=== PATIENT | female | born 2000 | race Caucasian/White ===

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

== ENCOUNTER 2022-12-23 19:34 | Emergency (ER) | payer SELFPAY ==
[2022-12-23 19:35] VITALS: BP 135/78; PULSE 86; RESP 18; TEMP 37.1; O2SAT 96; BMI 31.3
--- NOTE | 2022-12-23 19:55 | EXP.UTC ---
Discharge Plan Disposition Patient Disposition: Home, Self-Care Condition: Good Prescriptions Prescriptions: New ibuprofen [ibuprofen] 600 mg tablet 600 mg PO Q6HP PRN (Reason: Mild Pain) Qty: 30 0RF ibkqmwqzvambyhq-fhdjgdkgt-TN [Bromfed DM] 2-30-10 mg/5 mL Syrup 5 ml PO Q6H PRN (Reason: Cough) Qty: 240 0RF No Action fluticasone propionate 120 SPR/BOT bottle 1 spr NS DAILY Qty: 1 0RF Rx Instructions: one spray in each nostril daily Referrals Follow up/Referrals: William Bright MD [Primary Care Provider] - See instructions Activity Restrictions/Add. Instructions Additional Instructions/Restrictions: Drink plenty of fluids. Take tylenol or ibuprofen for pain or fever. Follow up with your regular doctor. GO TO THE ER FOR ANY WORSENING SYMPTOMS Clinical Impressions Clinical Impression: Viral pharyngitis, Acute viral syndrome Instructions Patient Instructions: DI for Viral Pharyngitis Discharge ED Provider: John Isaacs [facility] General Stated complaint: sore/swollen throat, difficulty swallowing Mode of Arrival: Ambulatory Source of Information: Patient Limitations: No Limitations Time Seen by Provider: 12/23/22 19:55 Description of Symptoms (Recalled from Triage Doc. by RN): sore throat, runny nose HEENT Symptoms (Recalled from RN notes): Yes Resp Symptoms (Recalled from RN notes): No Skin Symptoms (Recalled from RN notes): No MS Symptoms (Recalled from RN notes): No Functional Status (Recalled from RN notes): n/a History of Present Illness Provider Complaint: She states that she has felt bad and had a sore throat for the past 1 day. Related Data Previous Rx's Medication Instructions Recorded fluticasone propionate 50 1 spr NS DAILY #1 ea 08/03/21 mcg/actuation nasal spray,suspension pzeogpwihklyqkh-lcbewpyfoexpewp-LE 5 ml PO Q6H PRN Cough #240 mL 12/23/22 2 mg-30 mg-10 mg/5 mL oral syrup (Bromfed DM) ibuprofen 600 mg tablet 600 mg PO Q6HP PRN Mild Pain #30 12/23/22 tabs Allergies Allergy/AdvReac Type Severity Reaction Status Date / Time BEE VENOM PROTEIN (HONEY BEE) Allergy Unknown Uncoded 12/23/22 19:52 Worker's Comp Is this a Worker's Comp case?: No [facility] Disclaimer: The information contained in this section may have been updated after the patient was seen, as this information can be updated by other users. Social History Smoking Status: Never smoker alcohol intake: never current occupational status: employed Travel in the last 8 weeks: None ROS Obtained: Yes All systems reviewed & no additional complaints except as documented Constitutional Constitutional: Reports chills, Reports fatigue and Denies fever(s) Eyes Eyes: Denies eye discharge ENT Ears, Nose, Mouth, and Throat: Reports as per HPI Cardiovascular Cardiovascular: Denies chest pain Respiratory Respiratory: Denies chest congestion and Reports cough Gastrointestinal Gastrointestingal: Reports nausea; Denies abdominal pain, constipation, cramping, diarrhea or vomiting Musculoskeletal Musculoskeletal: Denies arthralgias Integumentary/Breasts Skin/Breast: Denies rash Neurologic Neurologic: Denies paresthesias Endocrine Endocrine: Reports fatigue Physical Exam General General appearance: alert and in no apparent distress Head Head exam: atraumatic, normocephalic and normal inspection Eye Eye exam: Present normal appearance, PERRL and EOMI ENT ENT exam: Present normal exam, normal oropharynx, mucous membranes moist, TM's normal bilaterally and normal external ear exam Neck Neck exam: Present normal inspection, full ROM and trachea midline; Absent meningismus or lymphadenopathy Chest Chest inspection: Present normal inspection and symmetric chest wall rise; Absent tenderness Respiratory Respiratory exam: Present normal lung sounds bilaterally; Absent respiratory distress Cardiovascular Cardiovascular exam: Present regular rate and normal rhythm; Absent JVD
[2022-12-23 20:00] LABS: UTC Strep Screen (Rapid) Negative (Negative)
[2022-12-23 20:11] VITALS: BP 135/78; PULSE 86; RESP 18; TEMP 37.1; O2SAT 96
== END 2022-12-23 20:11 | disposition home or self-care (01) ==
PROVIDERS: Emergency Provider Nurse Practitioner Family; PCP Internal Medicine Adolescent Medicine
DX: J02.9 Acute pharyngitis, unspecified (principal); B34.9 Viral infection, unspecified
CPT/HCPCS: 87880; 99212; 99214; G0463

== ENCOUNTER 2023-07-09 18:55 | Emergency (ER) | payer BC, SELFPAY ==
[2023-07-09 20:01] VITALS: BP 125/71; PULSE 87; RESP 18; TEMP 36.7; O2SAT 99; BMI 31.1
[2023-07-09 20:19] LABS: Apearance,Urine Cloudy (Clear); Color,Urine Dark Yellow (Yellow); Protein,Urine 1+ (Negative)
[2023-07-09 20:20] LABS: Bilirubin,Urine Negative (Negative); Blood, Urine 3+ (Negative); Glucose,Urine (UA) Negative (Negative); Ketones,Urine Negative (Negative); UTC Leukocyte Esterase,Urine 2+ (Negative); UTC Nitrate,Urine Negative (Negative); UTC Pregnancy Test, Urine Negative (Negative); Urobilinogen,Urine 1 EU/dl (0.2)
--- NOTE | 2023-07-09 20:24 | EXP.UTC ---
Discharge Plan Disposition Patient Disposition: Home, Self-Care Condition: Good Prescriptions Prescriptions: New cefdinir 300 mg capsule 300 mg PO BID Qty: 20 0RF phenazopyridine [Pyridium] 200 mg tablet 200 mg PO Q8H 2 Days Qty: 6 0RF No Action fluticasone propionate 120 SPR/BOT bottle 1 spr NS DAILY Qty: 1 0RF Rx Instructions: one spray in each nostril daily Referrals Follow up/Referrals: William Bright MD [Primary Care Provider] - See instructions Activity Restrictions/Add. Instructions Additional Instructions/Restrictions: *Increase fluids. Water not Soda or Tea *Start antibiotic immediately and be sure to take as ordered for the FULL length of time although you should start to see improvement over the next 48 hours *Pyridium as needed Remember this medication will turn your urine . This is normal but it will stain what ever it gets on *You should not use Pyridium for more than 48 hours. If so , follow up with your primary physician to review urine culture and ensure that antibiotic is adequate for infection *Be SURE to follow up anytime for new or worsening symptoms with your family doctor. AND in 48 hours for urine culture results with your family doctor, if you do not have a doctor then you may call back to the [facility] for urine culture results and further treatment. We do recommend that you choose and establish care with a Primary Care Physician. ?AND follow up with them ?in 10-14 days to repeat UA to ensure infection is resolved and blood no longer present *Be sure to let your PCP know that we sent urine cultures from the [facility] so they can follow up to ensure that you area the on the correct antibiotic Call your doctor office and make appointment for 48 hours (2 days from today) ?to follow up and get the results of your urine culture and further treatment Clinical Impressions Clinical Impression: UTI (urinary tract infection) Qualifiers: Urinary tract infection type: site unspecified Hematuria presence: with hematuria Qualified Code(s): N39.0 - Urinary tract infection, site not specified Instructions Patient Instructions: Urinary Tract Infection, DI for Urinary Tract Infection (UTI) Discharge ED Provider: Alyssa Ley [facility] [place] HPI General Stated complaint: painful urination Mode of Arrival: Ambulatory Source of Information: Patient Limitations: No Limitations Time Seen by Provider: 07/09/23 20:24 Description of Symptoms (Recalled from Triage Doc. by RN): Pt is having burning with urination. HEENT Symptoms (Recalled from RN notes): Yes Resp Symptoms (Recalled from RN notes): No Skin Symptoms (Recalled from RN notes): No MS Symptoms (Recalled from RN notes): No Functional Status (Recalled from RN notes): n/a History of Present Illness Provider Complaint: Patient states that for the last few days she has been having discomfort with urination and feeling of urgency and frequency States that she took some OTC Cranberry pills but they havent helped much States today she was still having symptoms and they discomfort seemed to be getting worse and she was worried she may have a UTI so she came in Denies fever, denies abdominal pain, denies back pain Related Data Previous Rx's Medication Instructions Recorded fluticasone propionate 50 1 spr NS DAILY #1 ea 08/03/21 mcg/actuation nasal spray,suspension cefdinir 300 mg capsule 300 mg PO BID #20 caps 07/09/23 phenazopyridine 200 mg tablet 200 mg PO Q8H pain 2 days #6 tabs 07/09/23 (Pyridium) Allergies Allergy/AdvReac Type Severity Reaction Status Date / Time BEE VENOM PROTEIN (HONEY BEE) Allergy Unknown Uncoded 07/09/23 20:24 Worker's Comp Is this a Worker's Comp case?: No [facility] Disclaimer: The information contained in this section may have been updated after the patient was seen, as this information can be updated by other users. Social History Smoking Status: Never smoker alcohol intake: never current occupational status: employed Travel in the last 8 weeks: None ROS Obtained: Yes All systems reviewed & no additional complaints except as documented and Yes Systems reviewed as appropriate & no additional complaints except as documented Constitutional Constitutional: Reports system reviewed and no additional complaints, except as documented, Reports as per HPI, Denies body ache, Denies chills and Denies fever(s) ENT Ears, Nose, Mouth, and Throat: Reports system reviewed and no additional complaints, except as documented and Reports as per HPI Cardiovascular Cardiovascular: Reports system reviewed and no additional complaints, except as documented and Reports as per HPI Respiratory Respiratory: Reports system reviewed and no additional complaints, except as documented and Reports as per HPI Gastrointestinal Gastrointestingal: Reports system reviewed and no additional complaints, except as documented and as per HPI; Denies abdominal pain, nausea or vomiting Genitourinary Female Genitourinary: Reports system reviewed and no additional complaints, except as documented, Reports as per HPI, Reports dysuria, Reports urinary frequency and Reports urinary urgency Musculoskeletal Musculoskeletal: Reports system reviewed and no additional complaints, except as documented and Reports as per HPI Physical Exam General General appearance: alert and in no apparent distress ENT ENT exam: Present mucous membranes moist Respiratory Respiratory exam: Present normal lung sounds bilaterally; Absent respiratory distress or wheezes Cardiovascular Cardiovascular exam: Present regular rate, normal rhythm and normal heart sounds Abdominal Exam Abdominal exam: Present soft and normal bowel sounds; Absent distention or tenderness Neurological Exam Neurological exam: Present alert, oriented X3 and normal gait Medical Decision Making Will Inquiry Pt receiving controlled substance: No Will was queried for this patient: No Vital Signs: 07/09/23 20:01 Temperature 98.0 F Temperature Source Oral Pulse Rate [Right Radial] 87 Respiratory Rate 18 Blood Pressure [Right Arm] 125/71 Blood Pressure Mean [Right Arm] 89 Blood Pressure Source [Right Arm] Automatic Cuff Blood Pressure Position [Right Arm] Sitting 02 Sat by Pulse Oximetry 99 Oxygen Delivery Method Room Air Lab Data Lab results reviewed: Yes I reviewed the patient's lab results. Lab Results 07/09/23 19:54: Urine Color Dark yellow, Urine Appearance Cloudy, Urine pH 7.0, Ur Specific [place] 1.020, Urine Protein 1+, Urine Glucose (UA) Negative, Urine Ketones Negative, Urine Blood 3+, Urine Nitrate Negative, Urine Bilirubin Negative, Urine Urobilinogen 1, Ur Leukocyte Esterase 2+ A, Tst Clinic Negative
[2023-07-09] MEDS: cefTRIAXone 1GM VIAL 1 GM IM (20:29)
[2023-07-09] MEDS: LIDOCAINE 1% 5ML PF VIAL IM (20:30)
[2023-07-09] MEDS: PHENAZOPYRIDINE 200MG TABLET 200 MG PO (20:30)
[2023-07-09 20:54] VITALS: BP 125/71; PULSE 87; RESP 18; TEMP 36.7; O2SAT 99
== END 2023-07-09 20:54 | disposition home or self-care (01) ==
PROVIDERS: Emergency Provider Nurse Practitioner; PCP Internal Medicine Adolescent Medicine
DX: N39.0 Urinary tract infection, site not specified (principal); R31.9 Hematuria, unspecified; R30.0 Dysuria
CPT/HCPCS: 81003; 81025; 87086; 96372; 99212; 99214; G0463; J0696

== ENCOUNTER 2023-12-03 21:10 | Emergency (ER) | payer BC, SELFPAY ==
[2023-12-03 21:10] VITALS: BP 139/86; PULSE 93; RESP 18; TEMP 36.8; O2SAT 100; BMI 28.3
[2023-12-03] MEDS: IOPAMIDOL-370 (76%);100ML BOTTLE 75 ML IV (21:25)
[2023-12-03] MEDS: SODIUM CHLORIDE 0.9% 10ML SYR (RAD ONLY) 10 ML IV (21:25)
--- NOTE | 2023-12-03 21:25 | CT_ITS ---
PROCEDURE INFORMATION: Exam: CT Abdomen And Pelvis With Contrast Exam date and time: 12/03/2023 11:00 PM Age: 23 years old Clinical indication: Abdominal pain; Additional info: Llq pain TECHNIQUE: Imaging protocol: Computed tomography of the abdomen and pelvis with contrast. Radiation optimization: All CT scans at this facility use at least one of these dose optimization techniques: automated exposure control; mA and/or kV adjustment per patient size (includes targeted exams where dose is matched to clinical indication); or iterative reconstruction. Contrast material: ISOVUE; Contrast volume: 75 ml; Contrast route: IV; COMPARISON: No relevant prior studies available. FINDINGS: Lungs: No acute finding. Liver: Normal. No mass. Gallbladder and biliary ducts: Normal. No calcified stones. No ductal dilation. Pancreas: Normal. No ductal dilation. Spleen: Normal. No splenomegaly. Adrenal glands: Normal. No mass. Kidneys and ureters: Normal. No hydronephrosis. Stomach and bowel: Unremarkable. No obstruction. No mucosal thickening. Appendix: No evidence of appendicitis. Intraperitoneal space: Unremarkable. No free air. No significant fluid collection. Vasculature: Unremarkable. No abdominal aortic aneurysm. Lymph nodes: Unremarkable. No enlarged lymph nodes. Urinary bladder: Unremarkable as visualized. Reproductive: Unremarkable as visualized. Bones/joints: Unremarkable. No acute fracture. Soft tissues: Unremarkable. IMPRESSION: No acute findings.
[2023-12-03] MEDS: KETOROLAC 30MG/ML VIAL 15 MG IV (21:33)
[2023-12-03] MEDS: ACETAMINOPHEN 1,000MG/100ML VIAL 1000 MG IV (21:33)
[2023-12-03] MEDS: LACTATED RINGERS 1000ML 1,000 ML 999 ML IV (21:33)
[2023-12-03] MEDS: ONDANSETRON 4MG/2ML VIAL 4 MG IV (21:33)
[2023-12-03 21:34] LABS: Basophils % 0.3 % (0.1-2.0); Eosinophils # 0.1 K/mm3 (0.0-0.4); Eosinophils % 0.7 % (0.1-12.0); Lymphocytes # 1.3 K/mm3 (0.7-4.5); Lymphocytes % 13.1 % (10-50); Mean Corpuscular HGB Conc 31.5 g/dL (31.8-35.4); Mean Corpuscular Hemoglobin 28.1 pg (27.0-31.2); Mean Corpuscular Volume 89.4 fl (81-99); Mean Platelet Volume 7.6 fl (7.4-10.4); Monocytes # 0.3 K/mm3 (0.1-1.0); Monocytes % 3.4 % (1.7-9.3); Neutrophils # 8.2 K/mm3 (1.8-7.8); Neutrophils % 82.4 % (37.0-80.0); Platelet Count 302 K/mm3 (142-424); Red Blood Count 4.25 M/mm3 (4.20-5.40); Red Cell Distribution Width 14.5 % (11.5-17.5)
--- NOTE | 2023-12-03 21:44 | ED_ITS ---
Discharge Plan Disposition Patient Disposition: Home, Self-Care Condition: Fair Prescriptions Prescriptions: No Action fluticasone propionate 120 SPR/BOT bottle 1 spr NS DAILY Qty: 1 0RF Rx Instructions: one spray in each nostril daily cefdinir 300 mg capsule 300 mg PO BID Qty: 20 0RF phenazopyridine [Pyridium] 200 mg tablet 200 mg PO Q8H 2 Days Qty: 6 0RF Referrals Follow up/Referrals: William Bright MD [Primary Care Provider] - See instructions Clinical Impressions Clinical Impression: Abdominal pain, acute, bilateral lower quadrant Instructions Patient Instructions: DI for Acute Abdominal Pain Print Language Print Language: Occitan Discharge ED Provider: Shantelle Claros General Adult HPI <Shantelle Claros DO - Last Filed: 12/04/23 12:02> General Chief complaint: Abdominal Pain Stated complaint: Abd Pain Time Seen by Provider: 12/03/23 21:15 Mode of Arrival: EMS Source of Information: Patient and EMS Limitations: No Limitations Description of Symptoms (Recalled from ER Triage Doc. by RN): Pt presents to ED via EMS for L sided abd pain and weakness. Pt states she was at work ([employer]) and started feeling weak and the pain started. Pt states she's not had this pain before. Pt is A&O*4 at this time. History of Present Illness HPI narrative: This patient is a 23-year-old female arriving by [facility] with concern for left lower quadrant abdominal pain. Patient states that she was working on [employer] and almost passed out because the pain became so severe. She denies experiencing these like this in the past. She states it did come on very suddenly. No fevers, chills, nausea, vomiting, changes bowel movements, urinary symptoms, abnormal vaginal discharge or bleeding, or other concerns. She is sexually active but denies any concern she could be , as her last period was approximate 1 week ago. She denies any concern for sexually transmitted infections. Related Data Previous Rx's ?Medication ?Instructions ?Recorded fluticasone propionate 50 1 spr NS DAILY #1 ea 08/03/21 mcg/actuation nasal spray,suspension cefdinir 300 mg capsule 300 mg PO BID #20 caps 07/09/23 phenazopyridine 200 mg tablet 200 mg PO Q8H pain 2 days #6 tabs 07/09/23 (Pyridium) Allergies Allergy/AdvReac Type Severity Reaction Status Date / Time bee venom protein (honey bee) Allergy Unknown Verified 08/02/23 10:37 allergy reaction PFSH <Shantelle Claros DO - Last Filed: 12/04/23 12:02> [facility] Disclaimer: The information contained in this section may have been updated after the patient was seen, as this information can be updated by other users. Social History Smoking Status: Current every day smoker alcohol intake: never current occupational status: employed Travel in the last 8 weeks: None <Shantelle Claros DO - Last Filed: 12/04/23 12:02> ROS Obtained: Yes All systems reviewed & no additional complaints except as documented Physical Exam <Shantelle Claros DO - Last Filed: 12/04/23 12:02> General General appearance: alert and in no apparent distress Head Head exam: atraumatic and normocephalic Eye Eye exam: Present normal appearance, PERRL and EOMI ENT ENT exam: Present normal exam, normal oropharynx, mucous membranes moist and normal external ear exam Neck Neck exam: Present normal inspection, full ROM and trachea midline; Absent tenderness Chest Chest inspection: Present normal inspection and symmetric chest wall rise; Absent tenderness Respiratory Respiratory exam: Present normal lung sounds bilaterally; Absent respiratory distress, wheezes, stridor or accessory muscle use Cardiovascular Cardiovascular exam: Present regular rate and normal rhythm Abdominal Exam Abdominal exam: Present soft and tenderness (LLQ); Absent distention, guarding, rebound or rigidity Extremities Exam Extremities exam: Present normal inspection, full ROM and normal capillary refill; Absent tenderness or edema Back Exam Back exam: Present normal inspection and full ROM; Absent tenderness Neurological Exam Neurological exam: Present alert, oriented X3, CN II-XII intact and normal gait; Absent motor sensory deficit Psychiatric Psychiatric exam: Present normal affect and normal mood Skin Skin exam: Present warm and dry Medical Decision Making <Shantelle Claros DO - Last Filed: 12/04/23 12:02> Medical Records Medical records reviewed: Yes I reviewed the patient's medical records. Will Inquiry Pt receiving controlled substance: No Vital Signs: 12/03/23 21:10 12/03/23 22:30 12/03/23 23:00 Temperature 98.3 F 98.3 F 97.9 F Temperature Source Oral Pulse Rate 70 84 Pulse Rate [Left] 93 H Respiratory Rate 18 16 18 Blood Pressure 115/60 119/70 Blood Pressure [Right Arm] 139/86 Blood Pressure Mean [Right Arm] 103 02 Sat by Pulse Oximetry 100 99 99 Oxygen Delivery Method Room Air 12/03/23 23:30 12/04/23 00:00 12/04/23 00:30 Temperature 98.4 F 98.4 F 98.2 F Temperature Source Oral Pulse Rate 60 58 L 88 Pulse Rate [Left] Respiratory Rate 16 16 18 Blood Pressure 100/52 L 100/55 L 123/74 Blood Pressure [Right Arm] Blood Pressure Mean [Right Arm] 02 Sat by Pulse Oximetry 100 99 Oxygen Delivery Method Room Air 12/04/23 00:30 Temperature 98.2 F Temperature Source Pulse Rate 88 Pulse Rate [Left] Respiratory Rate 16 Blood Pressure 123/74 Blood Pressure [Right Arm] Blood Pressure Mean [Right Arm] 02 Sat by Pulse Oximetry 99 Oxygen Delivery Method Lab Data Lab results reviewed: Yes I reviewed the patient's lab results. Lab Results 12/03/23 21:17: WBC 10.0, RBC 4.25, Hgb 12.0 L, Hct 38.0, MCV 89.4, MCH 28.1, M CHC 31.5 L, RDW 14.5, Plt Count 302, MPV 7.6, Neut % (Auto) 82.4 H, Lymph % (Auto) 13.1, [place] % (Auto) 3.4, Eos % (Auto) 0.7, Baso % (Auto) 0.3, Neut # (Auto) 8.2 H, Lymph # (Auto) 1.3, [place] # (Auto) 0.3, Eos # (Auto) 0.1, Baso # (Auto) 0.0, Sodium 139, Potassium 3.7, Chloride 107, Carbon Dioxide 23, Anion Gap 12.7, BUN 7, Creatinine 0.70, Estimated Creat Clear 146, Estimated GFR 106, Est GFR ( Amer) 128, Glucose 88, Calcium 9.3, Total Bilirubin 0.5, AST 26, ALT 17, Alkaline Phosphatase 77, Total Protein 7.8, Albumin 4.2, Globulin 3.6 H, Albumin/Globulin Ratio 1.2, Lipase 26, Serum HCG, Qual Negative 12/03/23 23:00: Urine Color Yellow, Urine Appearance Clear, Urine pH 6.0, Ur Specific [place] <= 1.005, Urine Protein Negative, Urine Glucose (UA) Negative, Urine Ketones 1+, Urine Blood Negative, Urine Nitrate Negative, Urine Bilirubin Negative, Urine Urobilinogen 0.2, Ur Leukocyte Esterase Negative, Urine WBC Occasional, Ur Squamous Epith Cells 3-5, Urine Bacteria Trace 12/03/23 21:17 12/03/23 21:17 Orders (Tests/Meds): ED MEDICATIONS Discontinued Medications Generic Name Dose Route Start Last Admin Trade Name Freq PRN Reason Stop Dose Admin Acetaminophen 1,000 mg 12/03/23 21:25 12/03/23 21:33 Acetaminophen 1,000mg/100ml Vial IV 12/03/23 21:26 1,000 mg ONCE ONE Administration Lactated Ringer's 1,000 mls @ 999 mls/hr 12/03/23 21:25 12/03/23 21:33 Lactated Ringer's 1000 Ml Bag IV 12/03/23 22:25 999 mls/hr .Q1H1M ONE Administration Iopamidol 75 ml 12/03/23 21:25 12/03/23 21:25 Iopamidol-370 (76%);100ml Bottle IV 12/03/23 21:26 75 ml ONCE ONE Administration Ketorolac Tromethamine 15 mg 12/03/23 21:25 12/03/23 21:33 Ketorolac 30mg/Ml Vial IV 12/03/23 21:26 15 mg ONCE ONE Administration Ondansetron HCl 4 mg 12/03/23 21:25 12/03/23 21:33 Ondansetron 4mg/2ml Vial IV 12/03/23 21:26 4 mg ONCE ONE Administration Sodium Chloride 10 ml 12/03/23 21:25 12/03/23 21:25 Sodium Chloride 0.9% 10ml Syr (Rad Only) IV 12/03/23 21:26 10 ml ONCE ONE Administration ORDERS Category Date Time Status CT abdomen pelvis w con Stat Cat Scan 12/03/23 21:25 Completed CBC w/Auto Diff [Complete Blood Count Auto Diff] Stat Lab 12/03/23 21:17 Completed CMP [Comprehensive Metabolic Panel] Stat Lab 12/03/23 21:17 Completed Lipase Stat Lab 12/03/23 21:17 Completed Serum [HCG Qualitative, Serum] Stat Lab 12/03/23 21:17 Completed UA [Urinalysis and Microscopic] Stat Lab 12/03/23 23:00 Completed Medical Decision Narrative: In summary, this patient is a 23-year-old female presenting to the Emergency Department for evaluation of left lower quadrant abdominal pain that started suddenly at work and nearly made her pass out. Differential diagnoses considered include but are not limited to ovarian cyst, ovarian torsion, colitis, , ectopic , cystitis, pyelonephritis, constipation. Ruling out the most morbid conditions drove assessment. On exam, the patient is lying in bed in no acute distress. She does have left lower quadrant tenderness on exam but otherwise abdominal exam is benign workup included CBC, CMP, lipase, urinalysis, test, urine gonorrhea, urine chlamydia, CT abdomen pelvis with IV contrast. She was given a bolus of IV fluids as well as IV Toradol, acetaminophen, and Zofran for symptomatic treatment. On reassessment, the patient is resting comfortably with significantly improved symptoms. She is feeling a lot better. Labs demonstrated reassuring CMP with no significant transaminitis, normal lipase. Kidney function normal. Patient care was signed out to the oncoming provider, Dr. Ruth, pending UA, test, and CT. <Manny Ruth MD - Last Filed: 12/04/23 23:31> Vital Signs: 12/03/23 21:10 12/03/23 22:30 12/03/23 23:00 Temperature 98.3 F 98.3 F 97.9 F Temperature Source Oral Pulse Rate 70 84 Pulse Rate [Left] 93 H Respiratory Rate 18 16 18 Blood Pressure 115/60 119/70 Blood Pressure [Right Arm] 139/86 Blood Pressure Mean [Right Arm] 103 02 Sat by Pulse Oximetry 100 99 99 Oxygen Delivery Method Room Air 12/03/23 23:30 12/04/23 00:00 12/04/23 00:30 Temperature 98.4 F 98.4 F 98.2 F Temperature Source Oral Pulse Rate 60 58 L 88 Pulse Rate [Left] Respiratory Rate 16 16 18 Blood Pressure 100/52 L 100/55 L 123/74 Blood Pressure [Right Arm] Blood Pressure Mean [Right Arm] 02 Sat by Pulse Oximetry 100 99 Oxygen Delivery Method Room Air 12/04/23 00:30 Temperature 98.2 F Temperature Source Pulse Rate 88 Pulse Rate [Left] Respiratory Rate 16 Blood Pressure 123/74 Blood Pressure [Right Arm] Blood Pressure Mean [Right Arm] 02 Sat by Pulse Oximetry 99 Oxygen Delivery Method Lab Data Lab Results 12/03/23 21:17: WBC 10.0, RBC 4.25, Hgb 12.0 L, Hct 38.0, MCV 89.4, MCH 28.1, M CHC 31.5 L, RDW 14.5, Plt Count 302, MPV 7.6, Neut % (Auto) 82.4 H, Lymph % (Auto) 13.1, [place] % (Auto) 3.4, Eos % (Auto) 0.7, Baso % (Auto) 0.3, Neut # (Auto) 8.2 H, Lymph # (Auto) 1.3, [place] # (Auto) 0.3, Eos # (Auto) 0.1, Baso # (Auto) 0.0, Sodium 139, Potassium 3.7, Chloride 107, Carbon Dioxide 23, Anion Gap 12.7, BUN 7, Creatinine 0.70, Estimated Creat Clear 146, Estimated GFR 106, Est GFR ( Amer) 128, Glucose 88, Calcium 9.3, Total Bilirubin 0.5, AST 26, ALT 17, Alkaline Phosphatase 77, Total Protein 7.8, Albumin 4.2, Globulin 3.6 H, Albumin/Globulin Ratio 1.2, Lipase 26, Serum HCG, Qual Negative 12/03/23 23:00: Urine Color Yellow, Urine Appearance Clear, Urine pH 6.0, Ur Specific [place] <= 1.005, Urine Protein Negative, Urine Glucose (UA) Negative, Urine Ketones 1+, Urine Blood Negative, Urine Nitrate Negative, Urine Bilirubin Negative, Urine Urobilinogen 0.2, Ur Leukocyte Esterase Negative, Urine WBC Occasional, Ur Squamous Epith Cells 3-5, Urine Bacteria Trace Orders (Tests/Meds): ED MEDICATIONS Discontinued Medications Generic Name Dose Route Start Last Admin Trade Name Freq PRN Reason Stop Dose Admin Acetaminophen 1,000 mg 12/03/23 21:25 12/03/23 21:33 Acetaminophen 1,000mg/100ml Vial IV 12/03/23 21:26 1,000 mg ONCE ONE Administration Lactated Ringer's 1,000 mls @ 999 mls/hr 12/03/23 21:25 12/03/23 21:33 Lactated Ringer's 1000 Ml Bag IV 12/03/23 22:25 999 mls/hr .Q1H1M ONE Administration Iopamidol 75 ml 12/03/23 21:25 12/03/23 21:25 Iopamidol-370 (76%);100ml Bottle IV 12/03/23 21:26 75 ml ONCE ONE Administration Ketorolac Tromethamine 15 mg 12/03/23 21:25 12/03/23 21:33 Ketorolac 30mg/Ml Vial IV 12/03/23 21:26 15 mg ONCE ONE Administration Ondansetron HCl 4 mg 12/03/23 21:25 12/03/23 21:33 Ondansetron 4mg/2ml Vial IV 12/03/23 21:26 4 mg ONCE ONE Administration Sodium Chloride 10 ml 12/03/23 21:25 12/03/23 21:25 Sodium Chloride 0.9% 10ml Syr (Rad Only) IV 12/03/23 21:26 10 ml ONCE ONE Administration ORDERS Category Date Time Status CT abdomen pelvis w con Stat Cat Scan 12/03/23 21:25 Completed CBC w/Auto Diff [Complete Blood Count Auto Diff] Stat Lab 12/03/23 21:17 Completed CMP [Comprehensive Metabolic Panel] Stat Lab 12/03/23 21:17 Completed Lipase Stat Lab 12/03/23 21:17 Completed Serum [HCG Qualitative, Serum] Stat Lab 12/03/23 21:17 Completed UA [Urinalysis and Microscopic] Stat Lab 12/03/23 23:00 Completed Medical Decision Narrative: In summary, this patient is a 23-year-old female presenting to the Emergency Department for evaluation of left lower quadrant abdominal pain that started suddenly at work and nearly made her pass out. Differential diagnoses considered include but are not limited to ovarian cyst, ovarian torsion, colitis, , ectopic , cystitis, pyelonephritis, constipation. Ruling out the most morbid conditions drove assessment. On exam, the patient is lying in bed in no acute distress. She does have left lower quadrant tenderness on exam but otherwise abdominal exam is benign workup included CBC, CMP, lipase, urinalysis, test, urine gonorrhea, urine chlamydia, CT abdomen pelvis with IV contrast. She was given a bolus of IV fluids as well as IV Toradol, acetaminophen, and Zofran for symptomatic treatment. On reassessment, the patient is resting comfortably with significantly improved symptoms. She is feeling a lot better. Labs demonstrated reassuring CMP with no significant transaminitis, normal lipase. Kidney function normal. Patient care was signed out to the oncoming provider, Dr. Ruth, pending UA, test, and CT. Flory BARON: I assumed care of the patient at the time of handoff from the prior provider. On reassessment patient reports symptomatic improvement. Urinalysis interpreted by me and shows no evidence of infection. test is negative. CT imaging shows no acute findings, specifically no ovarian cysts, no kidney stones. Interactive discussion was had with patient regarding her presentation. She reports symptomatic resolution. Low concern for any pathology at this time, patient discharged in stable condition with return precautions. Critical Care <Shantelle Claros, DO - Last Filed: 12/04/23 12:02> Critical Care Time Critical Care Time: No
[2023-12-03 22:30] VITALS: BP 115/60; PULSE 70; RESP 16; TEMP 36.8; O2SAT 99
[2023-12-03 23:00] VITALS: BP 119/70; PULSE 84; RESP 18; TEMP 36.6; O2SAT 99
[2023-12-03 23:30] VITALS: BP 100/52; PULSE 60; RESP 16; TEMP 36.9; O2SAT 100
[2023-12-04] VITALS: BP 100/55; PULSE 58; RESP 16; TEMP 36.9; O2SAT 99
[2023-12-04 00:30] VITALS: BP 123/74; PULSE 88; RESP 16; RESP 18; TEMP 36.8; O2SAT 99
[2023-12-04 03:23] LABS: Appearance,Urine CLEAR (Clear); Bilirubin,Urine Negative (Negative); Blood, Urine Negative (Negative); Color,Urine YELLOW (Yellow); Glucose,Urine (UA) Negative (Negative); Ketones,Urine 1+ (Negative); Leukocyte Esterase,Urine Negative (Negative); Microscopic, Urine URINE MICROSCOPIC (MICROSCOPIC); Nitrate,Urine Negative (Negative); Protein,Urine Negative (Negative); Specific Gravity, Urine <= 1.005 (1.005-1.030); Urobilinogen,Urine 0.2 EU/dl (0.2)
[2023-12-04 03:24] LABS: Alanine Aminotransferase 17 U/L (12-78); Albumin Level 4.2 g/dl (3.5-5.0); Albumin/Globulin Ratio 1.2 (1.1-1.8); Alkaline Phosphatase 77 U/L (38-126); Anion Gap 12.7 mEq/L (5-15); Aspartate Amino Transferase 26 U/L (14-36); Bilirubin,Total 0.5 mg/dl (0.2-1.3); Blood Urea Nitrogen 7 mg/dl (7-17); Calcium 9.3 mg/dl (8.4-10.2); Carbon Dioxide 23 mmol/L (22.0-30.0); Chloride 107 mmol/L (98-107); Creatinine Clearance Estimated 146 mL/min (50-200); Estimated Glomerular Filt Rate 106 ml/min (>60); GFR (African American) 128 ML/MIN (>60); Globulin 3.6 g/dL (1.3-3.2); Glucose 88 mg/dl (74-100); Lipase 26 U/L (23-300); Potassium 3.7 mmoL/L (3.5-5.1); Sodium 139 mmol/L (136-145); Total Protein,Serum 7.8 g/dl (6.3-8.2)
[2023-12-04 03:28] LABS: Bacteria,Urine Trace /lpf; WBC,Urine Occasional #/hpf (0-3)
[2023-12-04 03:31] LABS: HCG Qualitative, Serum Negative (Negative)
== END 2023-12-04 00:30 | disposition home or self-care (01) ==
PROVIDERS: Emergency Provider Emergency Medicine; PCP Internal Medicine Adolescent Medicine
DX: R10.31 Right lower quadrant pain (principal); R10.32 Left lower quadrant pain; F17.210 Nicotine dependence, cigarettes, uncomplicated
CPT/HCPCS: 74177; 80053; 81001; 83690; 84703; 85025; 96361; 96374; 96375; 99284; J0131; J1885; J2405; J7120; Q9967

== ENCOUNTER 2024-11-28 09:54 | Outpatient (CLI) | payer BC, SELFPAY ==
--- OUTSIDE RECORDS SUMMARY | 2024-09-30 21:00 | XMS_ITS | Encounter Summary ---
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 Phone Unavailable Primary Care Provider Unavailabl e Reason for Visit * Reason Comments GI Issue Encounter Details Date Type Department Care Team (Latest Contact Info) Description 09/30/2024 9:00 PM EDT Clinical Support [facility] [place] [address] [facility] [address] [place] [phone] [place] [address] [place] [phone] Lower abdominal pain (Primary Dx) Social History Tobacco Use Types Packs/Day Years Used Date Smoking Tobacco: Every Day E-Cigarettes Smokeless Tobacco: Never Tobacco Cessation:Ready to Q uit: Not Asked; Counseling Given: Not Answered Depression Answer Date Recorded PHQ Total Score 0 12/03/2023 Stress Answer Date Recorded Stress in your Life Not on file 02/20/2024 Dealing with Stress 3 02/20/2024 Comments Unknown Sex and Gender Information Value Date Recorded Sex Assigned at Not on file Legal Sex Female 3:11 PM [employer] Gender Identity Not on file Sexual Orientation Not on file documented as of this encounter Last Filed Vital Signs Vital Sign Reading Time Taken Comments Blood Pressure 128/75 09/30/2024 8:37 PM EDT Pulse 85 09/30/2024 8:37 PM EDT Temperature - - Respiratory Rate 16 09/30/2024 8:37 PM EDT Oxygen Saturation 100% 09/30/2024 8:37 PM EDT Inhaled Oxygen Concentration - - Weight - - Height - - Body Mass Index - - documented in this encounter Patient Instructions * Patient Instructions* GAVIN Vickers - 09/30/2024 9:00 PM EDT TM is choosing to go home. F/u PCP MELISA. To the ER if worse/concerns. RTW tomorrow if resolved; o/w RTC with release to RTW note. documented in this encounter Progress Notes * GAVIN Vickers - 09/30/2024 9:00 PM EDT Subjective Lexie Leon is a 24 y.o. female. WD ID: [id number] Employer: [employer] Date of Hire: 04/17/23 Cost Center: [id number] Description: [employer] T4 Shift: 2 Full-time GL and #: John Hawley Responded to tones dropped for abdomen pain in 800. Onset: 7pm Symptoms: lower abdomen pain Transported TM back to [facility] 1999 via Med 1 without stretcher. Notes: TM found seated in the break room A&Ox4. TM reports she was on line when lower abdominalpain started. TM describes te pain as sharp and stabbing. TM reports that the pain is worse when she is standing and moving around. TM reports she has been having regular bowel movements (every night), denies N/V. She reports she is not on her period and expects it to start around 10/13. TM is unsureof as she is sexually active and does not use and form of control. TM reports this has happened once before around 1 year ago while at work and she had a syncopal episode and was taken to the ER via ambulance. TM reports there were no new diagnosis during this time. TM reports that she has not had an ultrasound and has never seen an OBGYN. TM reports Maternal history of ovarian cancer. TM denies LH/D, CP, or SOB. TM declines ambulance at this time. TM's BP is elevated at this time. TM would like to go to [facility] to be checked as a precaution. Triage nurse: Josephine Acosta RN This was an emergency call with a disruption in patient care and scheduled clinic appointments. History Reviewed: Tobacco Allergies Meds Problems Med Hx Surg Hx See CC above TM is here for Emergency Evaluation after tones dropped for abdominal pain. TM states no injury or trauma, not work related. Symptoms since 6:50-7pm. TM states worse with standing and moving. Similarsymptoms 12/03/23 when she went to the ER by ALS after passing out and abdominal pain; she states CTand labs normal. TM states LMP 09/12 and normal. No urinary symptoms, normal vaginal d/c, no concerns for STI. Not LH/Dizzy, no nausea/vomiting but had some nausea earlier. No diarrhea, no constipation and had a BM last night (as usual). NO blood in stool. No prior abdominal surgery. No CP, no SOA. She has not had anything to eat today, but states she usually eats once a day. TM given PB Crackers and water at S. UA and HCG negative. TM is declining ALS/ER currently. Review of Systems Constitutional: Negative for fever. Respiratory: Negative for shortness of breath. Cardiovascular: Negative for chest pain. Gastrointestinal: Positive for abdominal pain. Negative for blood in stool, constipation, diarrhea,nausea and vomiting. Genitourinary: Negative for dysuria, hematuria and pelvic pain. Neurological: Negative for dizziness and light-headedness. PHQ-9 Total Score: 0 (09/30/2024 8:34 PM) Objective Vitals: 09/30/24202309/30/242036 BP: (!) 153/105 128/75 Pulse: 95 85 Resp: 16 SpO2: 100% 100% There were no vitals filed for this visit. Results for orders placed or performed in visit on 09/30/24 POCT Urine, Non-Automated without microscopy Collection Time: 09/30/24 9:14 PM Result Value Ref Range Urine Non-Auto Color, POC yellow Yellow Urine Non-Auto Appearance, POC clear Clear Urine Non-Auto Leukocytes, POC Negative Negative Urine Non-Auto Nitrites, POC Negative Negative Urine Non-Auto Urobilinogen, POC 0.2 mg/dl 0.2 - 1.0 mg/dl Urine Non-Auto Protein, POC Negative Negative Urine Non-Auto PH, POC 6.0 5.0 - 9.0 Urine Non-Auto Blood, POC Negative Negative Urine Non-Auto Specific [place], POC 1.010 1.005 - 1.030 Urine Non-Auto Ketones, POC Negative Negative, Inconclusive Urine Non-Auto Bilirubin, POC Negative Negative, Inconclusive Urine Non-Auto Glucose, POC Negative Negative, Inconclusive Lot Number [id number] Expiration Date 11/12/24 POCT , Urine Collection Time: 09/30/24 9:14 PM Result Value Ref Range URINE , POC Negative Urine , POC IQC Yes, verified internal control performed correctly. Lot Number [id number] Expiration Date 10/20/24 Physical Exam Vitals and nursing note reviewed. Constitutional: General: She is not in acute distress. Appearance: Normal appearance. She is well-developed. She is not ill-appearing. HENT: Mouth/Throat: Mouth: Mucous membranes are moist. Pharynx: Oropharynx is clear. No oropharyngeal exudate or posterior oropharyngeal erythema. Eyes: Extraocular Movements: Extraocular movements intact. Pupils: Pupils are equal, round, and reactive to light. Cardiovascular: Rate and Rhythm: Normal rate and regular rhythm. Heart sounds: Normal heart sounds. Pulmonary: Effort: Pulmonary effort is normal. No respiratory distress. Breath sounds: Normal breath sounds. Abdominal: General: Bowel sounds are normal. Palpations: Abdomen is soft. There is no mass. Tenderness: There is abdominal tenderness (suprapubic, LLQ, mild epigastric). There is no right CVAtenderness, left CVA tenderness, guarding or rebound. Musculoskeletal: General: No swelling. Skin: General: Skin is warm. Neurological: Mental Status: She is alert. Cranial Nerves: No cranial nerve deficit. Sensory: No sensory deficit. Motor: No abnormal muscle tone. Psychiatric: Mood and Affect: Mood normal. Behavior: Behavior normal. Assessment: ICD-10-CM ICD-9-CM 1. Lower abdominal pain R10.30 789.09 POCT Urine, Non-Automated without microscopy POCT , Urine Orders Placed This Encounter Procedures POCT Urine, Non-Automated without microscopy POCT , Urine Patient Instructions TM is choosing to go home. F/u PCP MELISA. To the ER if worse/concerns. RTW tomorrow if resolved; o/w RTC with release to RTW note. documented in this encounter Plan of Treatment Not on file documented as of this encounter Procedures Procedure Name Priority Date/Time Associated Diagnosis Comments POCT , URINE Routine 09/30/2024 9:14 PM EDT Lower abdominal pain POCT URINE, NON-AUTOMATED WITHOUT MICROSCOPY Routine 09/30/2024 9:14 PM EDT Lower abdominal pain documented in this encounter Results * POCT , Urine (09/30/2024 9:14 PM EDT) URINE , POC Negative Urine , POC IQC Yes, verified internal control performed correctly. Lot Number [id number] Expiration Date 10/20/24 Urine 09/30/2024 9:14 PM EDT us Sonal ALONSO POINT OF CARE TEST ORDERABLE S Final Result * POCT Urine, Non-Automated without microscopy (09/30/2024 9:14 PM EDT) Urine Non-Auto Color, POC yellow Yellow Urine Non-Auto Appearance, POC clear Clear Urine Non-Auto Leukocytes, POC Negative Negative Urine Non-Auto Nitrites, POC Negative Negative Urine Non-Auto Urobilinogen, POC 0.2 mg/dl 0.2 - 1.0 mg/dl Urine Non-Auto Protein, POC Negative Negative Urine Non-Auto PH, POC 6.0 5.0 - 9.0 Urine Non-Auto Blood, POC Negative Negative Urine Non-Auto Specific [place], POC 1.010 1.005 - 1.030 Urine Non-Auto Ketones, POC Negative Negative, Inconclusive Urine Non-Auto Bilirubin, POC Negative Negative, Inconclusive Urine Non-Auto Glucose, POC Negative Negative, Inconclusive Lot Number [id number] Expiration Date 11/12/24 Urine (Urine, Clean Catch) 09/30/2024 9:14 PM EDT us Sonal ALONSO POINT OF CARE TEST ORDERABLE S Final Result documented in this encounter Visit Diagnoses Diagnosis Lower abdominal pain- Primary Abdominal pain, other specified site documented in this encounter
--- OUTSIDE RECORDS SUMMARY | 2024-11-28 09:58 | XMS_ITS | Clinical Summary ---
Author Organization [facility] Address [address] [place] [phone] Phone [email or web address] Care Team Providers Care Fish [employer] Wildlife [employer] Aid Name Role Phone Unavailable Primary Care Provider Unavailabl e Allergies Active Allergy Reactions Criticality Noted Date Comments Honey Bee Venom Swelling High 04/02/2017 Swelling of throat Medications No known medications Active Problems Problem Noted Date Diagnosed Date Allergic rhinitis 02/25/2023 Encounters Date Type Department Care Team Description 09/30/2024 9:00 PM EDT Clinical Support ROBIN [place] [facility] [address] [place] [phone] Sonal Corral PA Lower abdominal pain (Primary Dx) from Last 3 Months Social History Tobacco Use Types Packs/Day Years [...] on file 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 Gender Identity Not on file Sexual Orientation Not on file Last Filed Vital Signs Vital Sign Reading Time Taken Comments Blood Pressure 128/75 09/30/2024 8:37 PM EDT Pulse 85 09/30/2024 8:37 PM EDT Temperature 36.1 C (96.9 F) 02/25/2023 5:06 PM EST Respiratory Rate 16 09/30/2024 8:37 PM EDT Oxygen Saturation 100% 09/30/2024 8:37 PM EDT Inhaled Oxygen Concentration - - Weight 79.4 kg (175 lb) 02/25/2023 5:06 PM EST Height 158.8 cm (5' 2.5 ) 02/25/2023 5:06 PM EST Body Mass Index 31.5 02/25/2023 5:06 PM EST Plan of Treatment Health Maintenance Due Date Last Done Comments Cervical Cancer Screening Combo 2002 Dental Cleaning/Exam 2002 HIV Screening 2002 HPV / Cotest 2002 Hepatitis C Screening 2002 Pap Testing 2002 HPV Immunization (1 - 3-dose series) 2017 Men B Immunization (1 of 2 - Standard) 2018 Hep B Infection Screening - Triple Screen 02/28/2020 Pneumococcal: Ped (0 to 5 Yr s) and At-Risk Member (6 to 64 Yrs) (1 of 2 - PCV) 2021 2002 Covid-19 Immunization (1 - 2 season) 2023 Annual Preventive Exam 02/26/2024 02/25/2023 Tetanus Diphtheria and Pertu ssis Immunization (7 - Td or Tdap) 11/23/2024 11/23/2014, 02/28/2006, 03/07/2005, Additional history exists Influenza Immunization (#1) 2024 HIB Immunization Completed 09/16/2003, , 2002 Hepatitis B Immunization Completed 004, 06/10/2003, 2002 Polio Immunization Completed 02/28/2006, 0 09/16/2003, 09/16/2003, Additional history exists Varicella Immunization Completed 11/23/2014, 2003 Meningococcal Immunization Completed 03/13/2018, Hepatitis A Immunization Completed 05/23/2018, 09/14 Procedures Procedure Name Priority Date/Time Associated Diagnosis Comments POCT , URINE Routine 09/30/2024 9:14 PM EDT Lower abdominal pain POCT URINE, NON-AUTOMATED WITHOUT MICROSCOPY Routine 09/30/2024 9:14 PM EDT Lower abdominal pain from Last 3 Months Results * POCT , Urine (09/30/2024 9:14 PM EDT) URINE , POC Negative Urine , POC IQC Yes, verified internal control performed correctly. Lot Number [id number] Expiration Date 10/20/24 Urine 09/30/2024 9:14 PM EDT Result [facility] Sonal ALONSO POINT OF CARE TEST ORDERABLE [...] Blood, POC Negative Negative Urine Non-Auto Specific [place], POC 1.010 1.005 - 1.030 Urine Non-Auto Ketones, POC Negative Negative, Inconclusive Urine Non-Auto Bilirubin, POC Negative Negative, Inconclusive Urine Non-Auto Glucose, POC Negative Negative, Inconclusive Lot Number [id number] Expiration Date 11/12/24 Urine (Urine, Clean Catch) 09/30/2024 9:14 PM EDT Result [facility] Sonal Corral [place] POINT OF CARE TEST ORDERABLE S Final Result from Last 3 Months Insurance OPT OUT NO COPAY NB
== END 2024-11-28 23:59 | disposition home or self-care (01) ==
LOC: LAB 09:56
PROVIDERS: PCP Internal Medicine Adolescent Medicine; Visit Provider Obstetrics & Gynecology
DX: Z34.90 Encounter for supervision of normal pregnancy, unspecified, unspecified trimester (principal); Z3A.00 Weeks of gestation of pregnancy not specified
CPT/HCPCS: 36415; 84144; 84702

== ENCOUNTER 2024-12-12 10:57 | Emergency (ER) | payer BC, SELFPAY ==
--- OUTSIDE RECORDS SUMMARY | 2024-12-12 11:10 | XMS_ITS | Clinical Summary ---
Author Organization [facility] Address [address] [place] [phone] Phone [email or web address] Care Team Providers Care Pencil Sorter Name Role Phone Unavailable Primary Care Provider Unavailabl e Allergies Active Allergy Reactions Criticality Noted Date Comments Honey Bee Venom Swelling High 04/02/2017 Swelling of throat Medications No known medications Active Problems Problem Noted Date Diagnosed Date Allergic rhinitis 02/25/2023 Encounters Date Type Department Care Team Description 09/30/2024 9:00 PM EDT Clinical Support ROBIN [place] [facility] [address] [place] [phone] Sonal Corral PA Lower abdominal pain [...] on file 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 Gender Identity Not on file Sexual Orientation [...] 10/20/24 Urine 09/30/2024 9:14 PM EDT Result [facility] Sonal ALONSO POINT OF CARE TEST ORDERABLE [...] Blood, POC Negative Negative Urine Non-Auto Specific [place], POC 1.010 1.005 - 1.030 Urine Non-Auto Ketones, POC Negative Negative, Inconclusive Urine Non-Auto Bilirubin, POC Negative Negative, Inconclusive Urine Non-Auto Glucose, POC Negative Negative, Inconclusive Lot Number [id number] Expiration Date 11/12/24 Urine (Urine, Clean Catch) 09/30/2024 9:14 PM EDT Result [facility] Sonal Corral [place] POINT OF CARE TEST ORDERABLE S Final Result from Last 3 Months Insurance OPT OUT NO COPAY NB
[2024-12-12 11:16] VITALS: BP 128/74; PULSE 90; RESP 13; TEMP 36.9; O2SAT 97; BMI 30.1
--- NOTE | 2024-12-12 11:20 | US_ITS ---
PROCEDURE INFORMATION: Exam: US , Transvaginal Exam date and time: 12/12/2024 11:48 AM Age: 24 years old Clinical indication: Lmp or gestational age (in weeks): 8w1d; Other: 1st trimester bleeding; TECHNIQUE: Imaging protocol: Real-time transvaginal obstetrical ultrasound of the maternal pelvis with image documentation. Transvaginal imaging was used for better evaluation of the fetus, adnexa, and/or cervix. COMPARISON: CT ABDOMEN PELVIS W CON 12/03/2023 11:00 PM FINDINGS: Gestation: Intrauterine gestational sac mildly irregular in shape. pole demonstrates no heart tones. Questionable collapsed yolk sac. MATERNAL: Right ovary/adnexa: Suspected ruptured corpus luteum right ovary. Left ovary/adnexa: Left ovary unremarkable. IMPRESSION: Intrauterine gestational sac mildly irregular in shape. pole demonstrates no heart tones. Nonviable gestation suspected. Follow-up and correlation with serial beta HCG levels is recommended. Findings were discussed with JIN Francis on 12/12/2024 1:28 PM EDT
--- NOTE | 2024-12-12 11:22 | PC.NURSE ---
call made to radiology to call in US for transvaginal
--- NOTE | 2024-12-12 11:25 | PC.NURSE ---
call made to lab for type and screen
[2024-12-12 11:28] LABS: Microscopic, Urine URINE MICROSCOPIC (MICROSCOPIC)
[2024-12-12 11:30] VITALS: BP 109/68; PULSE 77; O2SAT 97
[2024-12-12 11:32] LABS: Bilirubin,Urine Negative (Negative); Glucose,Urine (UA) Negative (Negative); Ketones,Urine Negative (Negative); Leukocyte Esterase,Urine Negative (Negative); PH,Urine 7.0 (5.0-8.5); Protein,Urine 1+ (Negative); Specific Gravity, Urine 1.020 (1.005-1.030); Urobilinogen,Urine 0.2 EU/dl (0.2)
[2024-12-12 11:36] LABS: Alanine Aminotransferase 16 U/L (12-78); Albumin Level 4.3 g/dl (3.5-5.0); Albumin/Globulin Ratio 1.3 (1.1-1.8); Alkaline Phosphatase 59 U/L (38-126); Anion Gap 14.2 mEq/L (5-15); Aspartate Amino Transferase 24 U/L (14-36); Bilirubin,Total 0.3 mg/dl (0.2-1.3); Blood Urea Nitrogen 14 mg/dl (7-17); Calcium 9.5 mg/dl (8.4-10.2); Carbon Dioxide 24 mmol/L (22.0-30.0); Chloride 108 mmol/L (98-107); Creatinine Clearance Estimated 153 mL/min (50-200); Creatinine,Serum 0.70 mg/dl (0.52-1.04); Estimated Glomerular Filt Rate 105 ml/min (>60); GFR (African American) 127 ML/MIN (>60); Globulin 3.3 g/dL (1.3-3.2); Glucose 76 mg/dl (74-100); Potassium 4.2 mmoL/L (3.5-5.1); Sodium 142 mmol/L (136-145); Total Protein,Serum 7.6 g/dl (6.3-8.2)
[2024-12-12 11:41] LABS: Hematocrit 37.0 % (37.0-47.0); Hemoglobin 12.3 g/dL (12.2-16.2); Immature Granulocytes % 0.1 %; Mean Corpuscular HGB Conc 33.2 g/dL (31.8-35.4); Mean Corpuscular Hemoglobin 29.7 pg (27.0-31.2); Mean Corpuscular Volume 89.4 fl (81-99); Nucleated Red Blood Cells % 0 %; Platelet Count 274 K/mm3 (142-424); Red Blood Count 4.14 M/mm3 (4.20-5.40); Red Cell Distribution Width-SD 44.4 fL; White Blood Count 7.3 K/mm3 (4.8-10.8)
--- NOTE | 2024-12-12 11:56 | PC.NURSE ---
going to ultrasound
[2024-12-12 12:14] LABS: Color,Urine Yellow (Yellow)
[2024-12-12 12:21] LABS: Bacteria,Urine Trace /lpf
--- NOTE | 2024-12-12 12:24 | PC.NURSE ---
Patient back in room from radiology
[2024-12-12 12:30] VITALS: BP 123/71; PULSE 68; O2SAT 99
[2024-12-12 13:00] VITALS: BP 124/62; PULSE 75; O2SAT 98
--- NOTE | 2024-12-12 13:08 | HMH.EDGENADL ---
Discharge Plan Disposition Patient Disposition: Home, Self-Care Condition: Good Prescriptions Prescriptions: No Action progesterone micronized [Prometrium] 200 mg capsule 200 mg vaginal HS Qty: 30 2RF Rx Instructions: insert vaginally every night at bedtime fluticasone propionate 120 SPR/BOT bottle 1 spr NS DAILY Qty: 1 0RF Rx Instructions: one spray in each nostril daily cefdinir 300 mg capsule 300 mg PO BID Qty: 20 0RF phenazopyridine [Pyridium] 200 mg tablet 200 mg PO Q8H 2 Days Qty: 6 0RF Referrals Follow up/Referrals: William Bright MD [Primary Care Provider, Internal Medicine] - See instructions Activity Restrictions/Add. Instructions Additional Instructions/Restrictions: Please call Dr. Wheeler's clinic on Saturday. She has sent her schedulers a message and they will be anticipating your call and will be able to schedule you a clinic appointment this week. If you have any new or worsening symptoms please return to the emergency department for further evaluation Clinical Impressions Clinical Impression: First trimester bleeding Print Language Print Language: Togolese Discharge ED Provider: Simon Muhammad Adult HPI General Chief complaint: Vaginal Bleeding Stated complaint: spotting, 8 weeks , cramping Time Seen by Provider: 12/12/24 11:13 Mode of Arrival: Ambulatory Source of Information: Patient Description of Symptoms (Recalled from ER Triage Doc. by RN): pt presents to ED with c/o 3 days of spotting. pt is 8 weeks+1 day . pts first . History of Present Illness HPI narrative: This is a 24-year-old female patient, with no past medical history and no daily medications, who is presenting to the emergency department today for evaluation of vaginal bleeding in the first trimester of . By estimated last menstrual period dates the patient states that she is likely 8 weeks . She states that she has not established care yet with OB, however she has called their clinic and somebody reportedly ordered outpatient labs for her including a beta hCG which came back at 400. She has not been on a vitamin. She states that over the last 2 to 3 days she has begun experiencing vaginal spotting with intermittent abdominal cramping. No overt abdominal pain. She has had no vaginal discharge. No urinary symptoms. No lightheadedness, fatigue, or other symptoms of anemia. She states that her vaginal bleeding is not significant enough to require a tampon or a pad and that this bleeding never soaks through her panty liner. Related Data Previous Rx's ?Medication ?Instructions ?Recorded fluticasone propionate 50 1 spr NS DAILY #1 ea 08/03/21 mcg/actuation nasal spray,suspension cefdinir 300 mg capsule 300 mg PO BID #20 caps 07/09/23 phenazopyridine 200 mg tablet 200 mg PO Q8H pain 2 days #6 tabs 07/09/23 (Pyridium) progesterone micronized 200 mg 200 mg vaginal HS #30 caps 12/02/24 capsule (Prometrium) Allergies Allergy/AdvReac Type Severity Reaction Status Date / Time bee venom protein (honey bee) Allergy Unknown Verified 08/02/23 10:37 allergy reaction PFSH PFS Disclaimer: The information contained in this section may have been updated after the patient was seen, as this information can be updated by other users. Social History Smoking Status: Current every day smoker alcohol intake: never current occupational status: employed Travel in the last 8 weeks?: None Have you lived/traveled outside US in past 30 days?: No Contact w/someone who lives/traveled outside US past 30 days?: No Exposure to someone with infectious disease in past 14 days?: No Do you have a fever (greater than 100.4 F or 38 C)?: No Have you tested positive for COVID-19?: No Exposed to someone with COVID-19 in past 14 days?: No Do you have a sore throat?: No Do you have a cough?: No Do you have any weakness?: No Do you have any diarrhea?: No Are you experiencing any unusual bleeding?: No Do you have any muscle aches/pain?: No Do you have any abdominal pain?: Yes Are you experiencing loss of taste or smell?: No ROS Obtained: Yes Systems reviewed as appropriate & no additional complaints except as documented Physical Exam General General appearance: other (See MDM) Respiratory Respiratory exam: Present other (See MDM) Cardiovascular Cardiovascular exam: Present other (See MDM) Neurological Exam Neurological exam: Present other (See MDM) Medical Decision Making Medical Records Medical records reviewed: Yes I reviewed the patient's medical records. Screening: Per USPSTF and CDC recommendations, given the prevalence of disease in our region, it is our hospital?s policy to screen for HIV and viral Hepatitis for all patients aged 18 and over and those with ongoing risk factors. Will Inquiry Pt receiving controlled substance: No Will was queried for this patient: No Vital Signs: 12/12/24 11:16 12/12/24 11:30 12/12/24 12:30 Temperature 98.4 F Temperature Source Oral Pulse Rate 77 68 Pulse Rate [Left Radial] 90 Respiratory Rate 13 Blood Pressure 109/68 L 123/71 Blood Pressure [Right Arm] 128/74 Blood Pressure Mean [Right Arm] 92 Blood Pressure Source Blood Pressure Source [Right Arm] Automatic Cuff Blood Pressure Position Blood Pressure Position [Right Arm] Supine 02 Sat by Pulse Oximetry 97 97 99 Oxygen Delivery Method Room Air 12/12/24 13:00 12/12/24 13:45 Temperature 98.5 F Temperature Source Oral Pulse Rate 75 75 Pulse Rate [Left Radial] Respiratory Rate 18 Blood Pressure 124/62 118/76 Blood Pressure [Right Arm] Blood Pressure Mean [Right Arm] Blood Pressure Source Automatic Cuff Blood Pressure Source [Right Arm] Blood Pressure Position Supine Blood Pressure Position [Right Arm] 02 Sat by Pulse Oximetry 98 Oxygen Delivery Method Room Air Lab Data Lab Results 12/12/24 11:08: Urine Color Yellow, Urine Appearance Cloudy, Urine pH 7.0, Ur Specific [place] 1.020, Urine Protein 1+ A, Urine Glucose (UA) Negative, Urine Ketones Negative, Urine Blood 3+ A, Urine Nitrate Negative, Urine Bilirubin Negative, Urine Urobilinogen 0.2, Ur Leukocyte Esterase Negative, Urine RBC 10-20, Urine WBC 5-10, Ur Squamous Epith Cells 5-10, Urine Bacteria Trace 12/12/24 11:14: WBC 7.3, RBC 4.14 L, Hgb 12.3, Hct 37.0, MCV 89.4, MCH 29.7, MCHC 33.2, RDW 13.6, Plt Count 274, MPV 9.2, Neut % (Auto) 50.4, Lymph % (Auto) 39.5, [place] % (Auto) 6.0, Eos % (Auto) 3.3, Baso % (Auto) 0.7, Neut # (Auto) 3.7, Lymph # (Auto) 2.9, [place] # (Auto) 0.4, Eos # (Auto) 0.2, Baso # (Auto) 0.1, Sodium 142, Potassium 4.2, Chloride 108 H, Carbon Dioxide 24, Anion Gap 14.2, BUN 14, Creatinine 0.70, Estimated Creat Clear 153, Estimated GFR 105, Est GFR ( Amer) 127, Glucose 76, Calcium 9.5, Total Bilirubin 0.3, AST 24, ALT 16, Alkaline Phosphatase 59, Total Protein 7.6, Albumin 4.3, Globulin 3.3 H, Albumin/Globulin Ratio 1.3, HCG, Quant 798 H, HCV Ab WENDY w/Rflx PCR Qn Negative, HIV Ag/Ab Combo Qual Negative 12/12/24 11:40: Blood Type A Positive, Antibody Screen Negative 12/12/24 11:14 12/12/24 11:14 Orders (Tests/Meds): ORDERS Category Date Time Status Type and Screen Stat BBK 12/12/24 11:40 Completed CBC w/Auto Diff [Complete Blood Count Auto Diff] Stat Lab 12/12/24 11:14 Completed CMP [Comprehensive Metabolic Panel] Stat Lab 12/12/24 11:14 Completed HCG,Quantitative Stat Lab 12/12/24 11:14 Completed HIV Combo Stat Lab 12/12/24 11:14 Completed Hepatitis C Ab Qual. W/ RFX Stat Lab 12/12/24 11:14 Completed UA [Urinalysis and Microscopic] Stat Lab 12/12/24 11:08 Completed US OB transvaginal Stat Ultrasound 12/12/24 11:20 Completed Medical Decision Narrative: In summary, this is a 24-year-old female patient who is presented to the emergency department today for evaluation of first trimester bleeding at 8 weeks of gestation by last menstrual period dates. This patient has no comorbidities that would complicate their medical management or care. This patient has no comorbidities that would complicate their medical management or care. On initial evaluation of the patient they were resting comfortably in no acute distress and nontoxic in appearance. They are hemodynamically stable, saturating well room air, and are neurologically intact. On physical examination the patient is appropriately alert and interactive with a GCS of 15. Heart and lungs clear to auscultation bilaterally. Abdominal exam is benign without any tenderness or rebound tenderness. Pelvic exam was deferred. Differential diagnosis includes subchorionic hemorrhage, implantation bleeding, spontaneous , inevitable , missed , among others Workup was initiated with hematologic labs including a type and screen as well as a urinalysis. I have also ordered a transvaginal ultrasound Labs were personally interpreted by me demonstrating no evidence of leukocytosis. No evidence of anemia. No evidence of electrolyte derangement or acute kidney injury. The patient does have 3+ blood in her urine as well as 5-10 white cells. No evidence of overt infection. Notably, the patient's hCG is 798, and 14 days ago her hCG was 486. This is very concerning for potential failure given that her hCG has not doubled and has not eclipsed at 1000. Transvaginal ultrasound was obtained and demonstrated a gestational sac within the uterus that is irregular in shape. pole demonstrates no heart tones and the radiologist feels that there is a nonviable gestation that is suspected Given these findings I had an interactive discussion with Dr. Wheeler of the [employer] service to request earlier follow-up in the clinic. Dr. Wheeler would like to have the patient call her office on Saturday and states that her clinical account executive has been made aware of the situation and will schedule her follow-up in the clinic this week. I have relayed this plan to the patient and she is amenable and acknowledges understanding. Return precautions have been given in the event that she develops symptoms of anemia, large amounts of bleeding, or fevers. At this time all questions have been answered and all parties are agreeable with the decision to discharge home Critical Care Critical Care Time Critical Care Time: No
--- NOTE | 2024-12-12 13:10 | PC.NURSE ---
Gave the patient crackers and peanut butter
[2024-12-12 13:28] LABS: Hepatitis C Ab Qual. W/ RFX NEGATIVE (Negative)
--- NOTE | 2024-12-12 13:33 | PC.NURSE ---
OB premix concrete batcher, , paged for .
[2024-12-12 13:45] VITALS: BP 118/76; PULSE 75; RESP 18; TEMP 36.9; O2SAT 98
--- NOTE | 2024-12-13 17:57 | PC.NURSE ---
[facility] called and requested the pts records from her ED visit on 12/12/24. Roxy DURANT faxed a consent with the pts signature allowing us to share the information. Doctors note, labs and US reports faxed to [place] [facility].
== END 2024-12-12 13:47 | disposition home or self-care (01) ==
PROVIDERS: Emergency Provider Student in an Organized Health Care Education/Training Program; PCP Internal Medicine Adolescent Medicine
DX: O20.9 Hemorrhage in early pregnancy, unspecified (principal); Z3A.08 8 weeks gestation of pregnancy
CPT/HCPCS: 36415; 76817; 80053; 81001; 84702; 85025; 86803; 86850; 87389; 99284

== ENCOUNTER 2025-01-05 10:59 | Outpatient (CLI) | payer BC, SELFPAY | END 2025-01-05 23:59 | disposition home or self-care (01) | LOC: LAB 11:00 | PROVIDERS: PCP Internal Medicine Adolescent Medicine; Visit Provider Obstetrics & Gynecology | DX: O20.9 Hemorrhage in early pregnancy, unspecified (principal); Z3A.00 Weeks of gestation of pregnancy not specified | CPT/HCPCS: 36415; 84702 ==

== ENCOUNTER 2025-02-14 09:53 | Outpatient (CLI) | payer BC, SELFPAY | END 2025-02-14 23:59 | disposition home or self-care (01) | LOC: LAB 09:54 | PROVIDERS: PCP Internal Medicine Adolescent Medicine; Visit Provider Obstetrics & Gynecology | DX: Z34.90 Encounter for supervision of normal pregnancy, unspecified, unspecified trimester (principal); N92.6 Irregular menstruation, unspecified; Z3A.00 Weeks of gestation of pregnancy not specified | CPT/HCPCS: 36415; 84144; 84702 ==

== ENCOUNTER 2025-02-17 13:02 | Outpatient (CLI) | payer BC, SELFPAY | END 2025-02-17 23:59 | disposition home or self-care (01) | LOC: LAB 13:03 | PROVIDERS: PCP Internal Medicine Adolescent Medicine; Visit Provider Obstetrics & Gynecology | DX: Z34.90 Encounter for supervision of normal pregnancy, unspecified, unspecified trimester (principal); Z3A.00 Weeks of gestation of pregnancy not specified | CPT/HCPCS: 36415; 84702 ==

== ENCOUNTER 2025-03-16 09:42 | Outpatient (CLI) | payer BC, SELFPAY ==
--- OUTSIDE RECORDS SUMMARY | 2025-01-21 17:00 | XMS_ITS | Encounter Summary ---
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 female. WD ID: [id number] Employer: [employer] Date of Hire: 04/17/23 Cost Center: [id number] Description: PWT T4 Shift: 2 Full-time GL and #: John Hawley Responded to tones dropped for blurred vision in 800. Onset: start of shift Symptoms: right sided temporal headache, blurred vision Transported TM back to [place] [address] via sheila without stretcher. Notes: on EMS [...]
--- OUTSIDE RECORDS SUMMARY | 2025-02-03 17:30 | XMS_ITS | Encounter Summary ---
Author Organization [facility] Address [address] [place] [address] Phone CareEverywhereSuppor [email or web address] Care Team Providers Care Maintenance Electrician Name Role Phone Unavailable Primary Care Provider Unavailabl e Reason for Visit * Reason Comments Health Center Offerings Encounter Details Date Type Department Care Team (Latest Contact Info) Description 02/03/2025 6:30 PM EDT Clinical Support [place] [address] [facility] [address] [place] [address] Thiago Chang RN [address] [place] [address] Acute head injury, initial encounter [...] on file 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 female. WD ID: [id number] Employer: [employer] Date of Hire: 04/17/2023 Cost [...] care and scheduled clinic appointments. History Reviewed: [facility] Review of Systems PHQ-9 Total [...]
--- NOTE | 2025-03-16 10:00 | US_ITS ---
PROCEDURE: US OB TRANSVAGINAL CLINICAL INDICATION: viability COMPARISON: US US OB TRANSVAGINAL from 12/12/2024 FINDINGS: Transvaginal sonographic images of the pelvis were obtained. From her last menstrual period she is 9weeks 0 days. The uterus is retroverted and retroflexed. An intrauterine gestational sac is present with a pole with a crown-rump length of 0.34cm This correlates to a gestational age of 6weeks 1day. heart tones are absent. The yolk sac appears to be collapsed. The right ovary is seen and appears normal. There is a follicle in the right ovary measuring 2.1 cm x 1.4 cm x 1.6 cm. The left ovary is seen and appears normal. There is no fluid in the cul-de-sac. IMPRESSION: 1. Retroflexed uterus with an intrauterine gestational sac. 2. A pole is noted measuring 6 weeks 1 day and no heart rate is seen. 3. The yolk sac appears collapsed. 4. A nonviable fetus is likely and would suggest repeat ultrasound in 1 week along with serial beta HCGs. 5. Both ovaries are seen and appear normal. The right ovary has a follicle measuring 2.1 cm in size. 6. No fluid in the cul-de-sac. Dictated by: Edmund Merida MD 03/16/2025 11:36 Edmund Merida MD in OV 03/16/2025 11:36
--- OUTSIDE RECORDS SUMMARY | 2025-03-16 10:01 | XMS_ITS | Clinical Summary ---
Author Organization [facility] Address [address] [place] [address] Phone CareEverywhereSuppor [email or web address] Care Team Providers Care Deicer Inspector Pneumatic Name Role Phone Unavailable Primary Care Provider Unavailabl e Allergies Active Allergy Reactions Criticality Noted Date Comments Honey Bee Venom Swelling High 04/02/2017 Swelling of throat Medications No known medications Active Problems Problem Noted Date Diagnosed Date Allergic rhinitis 02/25/2023 Encounters Date Type Department Care Team Description 02/04/[address] [address] Calin Greenwood MA 02/03/2025 6:30 PM EDT Clinical Support [address] [address] Thiago Chang RN Acute head injury, initial encounter (Primary Dx) 01/21/2025 6:00 PM EDT Clinical Support [address] [address] Mamta Vasquez PA Ophthalmoplegic migraine, 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) from Last 3 Months Social [...] on file 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 Gender Identity Not on file Sexual Orientation Not on file Last Filed Vital Signs Vital Sign Reading Time Taken Comments Blood Pressure 156/85 02/03/2025 6:25 PM EDT Pulse 104 02/03/2025 6:25 PM EDT Temperature 36.1 C (96.9 F) 02/25/2023 5:06 PM EST Respiratory Rate 16 02/03/2025 6:25 PM EDT Oxygen Saturation 100% 02/03/2025 6:25 PM EDT Inhaled Oxygen Concentration - - Weight 74.8 kg (165 lb) 01/21/2025 6:05 PM EDT Height 158.8 cm (5' 2.5 ) 02/25/2023 5:06 PM EST Body Mass Index 29.7 02/25/2023 5:06 PM EST Plan of Treatment Health Maintenance Due Date Last Done Comments Cervical Cancer Screening Combo 2002 Dental Cleaning/Exam 2002 HIV Screening 2002 HPV only / HPV + Pap 2002 Hepatitis C Screening 2002 Pap only testing 2002 HPV Immunization (1 - 3-dose series) 2017 Men B Immunization (1 of 2 - Standard) 2018 Hep B Infection Screening - Triple Screen 02/28/2020 Pneumococcal Immunization (1 of 2 - PCV) 2021 2002 Annual Preventive Exam 02/26/2024 02/25/2023 Tetanus Diphtheria and Pertu ssis Immunization (7 - Td or Tdap) 11/23/2024 11/23/2014, 02/28/2006, 03/07/2005, Additional history exists Covid-19 Immunization (1 - 2 season) 2024 Influenza Immunization (#1) 2024 HIB Immunization Completed 09/16/2003, , 2002 Hepatitis B Immunization Completed 004, 06/10/2003, 2002 Polio Immunization Completed 02/28/2006, 0 09/16/2003, 09/16/2003, Additional history exists Varicella Immunization Completed 11/23/2014, 2003 Meningococcal Immunization Completed 03/13/2018, Hepatitis A Immunization Completed 05/23/2018, 06/2 05/2017 Insurance OPT OUT NO COPAY NB
--- OUTSIDE RECORDS SUMMARY | 2025-03-16 10:01 | XMS_ITS | Encounter Summary ---
Author Organization [facility] Address [address] [place] [address] Phone [email or web address] [email or web address] Care Team Providers Care Rotor Coil Taper Name Role Phone Unavailable Primary Care Provider Unavailabl e Reason for Visit * Reason Onset Date Comments Care Coordination 02/04/2025 AMA Refusal Ch scott Up Call Encounter Details Date Type Department Care Team (Late st Contact Info) Description 02/04/[address] [place] [address] Calin Greenwood MA [address] [place] [address] Social History Tobacco Use Types Packs/Day Years Used Date Smoking Tobacco: Every Day E-Cigarettes Smokeless Tobacco: Never Depression Answer Date Recorded PHQ Total Score 0 12/03/2023 Stress Answer Date Recorded Stress in your Life Not on file 02/20/2024 Dealing with Stress 3 02/20/2024 Comments Unknown Sex and Gender Information Value Date Recorded Sex Assigned at Not on file 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 This sales team member did not answer on this phone call attempt. No further questions or concerns at this time. -Calin Greenwood 02/04/2025 documented in this encounter Plan of Treatment Not on file documented as of this encounter Visit Diagnoses Not on filedocumented in this encounter
[2025-03-16 11:54] LABS: Hematocrit 36.9 % (37.0-47.0); Hemoglobin 12.2 g/dL (12.2-16.2); Immature Granulocytes % 0.4 %; Mean Corpuscular HGB Conc 33.1 g/dL (31.8-35.4); Mean Corpuscular Hemoglobin 29.6 pg (27.0-31.2); Mean Corpuscular Volume 89.6 fl (81-99); Nucleated Red Blood Cells % 0 %; Platelet Count 271 K/mm3 (142-424); Red Blood Count 4.12 M/mm3 (4.20-5.40); Red Cell Distribution Width-SD 44.4 fL; White Blood Count 6.7 K/mm3 (4.8-10.8)
[2025-03-16 13:19] LABS: Hepatitis C Ab Qual. W/ RFX NEGATIVE (Negative)
[2025-03-16 15:20] LABS: RPR W/RFX Titers Nonreactive (Nonreactive)
[2025-03-17 03:52] LABS: Hepatitis B Surface Antigen Negative (Negative)
[2025-03-17 07:35] LABS: Rubella Antibodies, IgG 1.76 index (Immune >0.99)
== END 2025-03-16 23:59 | disposition home or self-care (01) ==
PROVIDERS: PCP Internal Medicine Adolescent Medicine; Visit Provider Obstetrics & Gynecology
DX: O03.9 Complete or unspecified spontaneous abortion without complication (principal); N85.4 Malposition of uterus; N83.01 Follicular cyst of right ovary; Z3A.09 9 weeks gestation of pregnancy
CPT/HCPCS: 36415; 76817; 84702; 85025; 86592; 86762; 86787; 86803; 86850; 87340; 87389

== ENCOUNTER 2025-03-18 12:16 | Outpatient (CLI) | payer BC, SELFPAY ==
--- OUTSIDE RECORDS SUMMARY | 2025-01-21 17:00 | XMS_ITS | Encounter Summary ---
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) Social History Tobacco Use Types Packs/Day Years Used Date Smoking Tobacco: Every Day E-Cigarettes Smokeless Tobacco: Never Depression Answer Date Recorded PHQ Total Score 0 12/03/2023 Stress Answer Date Recorded Stress in your Life Not on file 02/20/2024 Dealing with Stress 3 02/20/2024 Comments Unknown Sex and Gender Information Value Date Recorded Sex Assigned at Not on file 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 Gender Identity Not on file Sexual Orientation Not on file documented as of this encounter Last Filed Vital Signs Vital Sign Reading Time Taken Comments Blood Pressure 140/81 01/21/2025 6:05 PM EDT Pulse 87 01/21/2025 6:05 PM EDT Temperature - - Respiratory Rate 18 01/21/2025 6:05 PM EDT Oxygen Saturation 100% 01/21/2025 6:05 PM EDT Inhaled Oxygen Concentration - - Weight 74.8 kg (165 lb) 01/21/2025 6:05 PM EDT Height - - Body Mass Index 29.7 02/25/2023 5:06 PM EST documented in this encounter Patient Instructions * Patient Instructions* GAVIN Peralta - 01/21/2025 6:00 PM EDT Convenience care TM who has right temporal migraine associated with blurry vision TM was evaluated, treated in clinic with Toradol 60 mg injection and tylenol 1000 mg TM was monitored in clinic, she did not improve and does not feel able to return to work TM called her mother to come to pick her up from work TM advised if she feels better tomorrow and has no migraine she can report to work as usual TM advised if she does not improve or has worsening of migraine to seek medica care documented in this encounter Progress Notes * GAVIN Peralta - 01/21/2025 6:00 PM EDT Subjective Lexie Leon is a 24 y.o. female. WD ID: [id number] Employer: [employer] Date of Hire: 04/17/23 Cost Center: [id number] Description: PWT T4 Shift: 2 Full-time GL and #: John Hawley Responded to tones dropped for blurred vision in 800. Onset: start of shift Symptoms: right sided temporal headache, blurred vision Transported TM back to [place] [address] via sheila without stretcher. Notes: on EMS arrival TM is seated in break area a&o x4 and in no apparent distress. TM states when she began working her vision started to blur. Also reports dull right temporal headache starting at same time. TM reports history of migraines and states they start in this manner. No rx meds formigraines; TM does take ibprofen but states it only works sometimes. Denies LH/D. Triage nurse: FATEMEH RN This was an emergency call with a disruption in patient care and scheduled clinic appointments. History Reviewed: Tobacco Allergies Meds Problems Med Hx Surg Hx Fam Hx HPI See above nurse note. TM is a 24 y/o female who was transported to clinic after tones dropped for TM who has blurred vision in 800. TM reports having hx of migraines and in the past were associated with blurry vision, she has right temporal headache. TM reports headache started as pressure left side of face then she started having achy pain right temporal area and blurry vision. She has no neck pain or stiffness, no flashing lights or face numbness or tingling, no nausea, she is not LD or dizzy. TM reports her headache usually improves with ibuprofen and sleep. Review of Systems Constitutional: Negative. HENT: Negative. Eyes: Blurry vision Respiratory: Negative. Cardiovascular: Negative. Gastrointestinal: Negative for nausea. Musculoskeletal: Negative. Neurological: Positive for headaches (right temporal, achy). Negative for dizziness, light-headedness and numbness. PHQ-9 Total Score: 0 (01/21/2025 5:56 PM) Objective Vitals: 01/21/25 1805 BP: (!) 140/81 Pulse: 87 Resp: 18 SpO2: 100% Weight: 165 lb There were no vitals filed for this visit. Physical Exam Vitals and nursing note reviewed. Eyes: Extraocular Movements: Extraocular movements intact. Pupils: Pupils are equal, round, and reactive to light. Cardiovascular: Rate and Rhythm: Normal rate and regular rhythm. Pulses: Normal pulses. Heart sounds: Normal heart sounds. Pulmonary: Effort: Pulmonary effort is normal. Breath sounds: Normal breath sounds. Abdominal: General: Bowel sounds are normal. Palpations: Abdomen is soft. Tenderness: There is no abdominal tenderness. Skin: General: Skin is warm and dry. Psychiatric: Mood and Affect: Mood normal. Behavior: Behavior normal. Assessment: ICD-10-CM ICD-9-CM 1. Ophthalmoplegic migraine, not intractable G43.B0 346.20 ketorolac (TORADOL) injection 60 mg right side temportal headache with blurry vision No orders of the defined types were placed in this encounter. Patient Instructions Convenience care TM who has right temporal migraine associated with blurry vision TM was evaluated, treated in clinic with Toradol 60 mg injection and tylenol 1000 mg TM was monitored in clinic, she did not improve and does not feel able to return to work TM called her mother to come to pick her up from work TM advised if she feels better tomorrow and has no migraine she can report to work as usual TM advised if she does not improve or has worsening of migraine to seek medica care documented in this encounter Plan of Treatment Not on file documented as of this encounter Visit Diagnoses Diagnosis Ophthalmoplegic migraine, not intractable- Primary documented in this encounter Administered Medications Inactive Administered Medications - up to 3 most recent administrations Medication Order MAR Action Action Date Dose Rate Site ketorolac (TORADOL) injection 60 mg 60 mg, Intramuscular, Once, On Farrah 01/21/25 at 1815, For 1 doseIndications:Ophthalm oplegic migraine, not intractable Given 01/21/2025 6:08 PM EDT 60 mg Right Ventrogluteal documented in this encounter
--- OUTSIDE RECORDS SUMMARY | 2025-02-03 17:30 | XMS_ITS | Encounter Summary ---
Author Organization [facility] Address [address] [place] [address] Phone [email or web address] [email or web address] Care Team Providers Care Armature Winder Repairer Name Role Phone Unavailable Primary Care Provider Unavailabl e Reason for Visit * Reason Comments Health Center Offerings Encounter Details Date Type Department Care Team (Latest Contact Info) Description 02/03/2025 6:30 PM EDT Clinical Support [place] [address] [facility] [address] [place] [address] Thiago Chang RN [address] [place] [address] Acute head injury, initial encounter (Primary Dx) Social History Tobacco Use Types [...] on file 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 Gender Identity Not on file Sexual Orientation Not on file documented as of this encounter Last Filed Vital Signs Vital Sign Reading Time Taken Comments Blood Pressure 156/85 02/03/2025 6:25 PM EDT Pulse 104 02/03/2025 6:25 PM EDT Temperature - - Respiratory Rate 16 02/03/2025 6:25 PM EDT Oxygen Saturation 100% 02/03/2025 6:25 PM EDT Inhaled Oxygen Concentration - - Weight - - Height - - Body Mass Index - - documented in this encounter Patient Instructions * Patient Instructions* Thiago Chang RN - 02/03/2025 6:30 PM EDT Seek emergency care for any new/worsening symptoms Can still see [facility] in the future if she wishes to file worker's comp claim documented in this encounter Progress Notes * Thiago Chang RN - 02/03/2025 6:30 PM EDT TM DID NOT FILE WORKERS COMP CLAIM Subjective Lexie Jania Leon is a 24 y.o. female. 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 Onset: 02/03/2025 Symptoms: Denies any current symptoms, denies: light headed, dizziness, visual changes, nausea, headache, or neck pain TM signed AMA and was not transported [facility] to [facility]. Notes: Responded to tones dropped for tm who it their head. Arrived on scene to find tm sitting in a chair at a table. TM reports she dropped her gum in the floor and bent over to pick it up and whenshe raised back up she hit her head on a metal table. History: Prior history of injury/surgery to same or similar body part: No. TM states she has never been diagnosed with a head injury/concussion. Assessment Patient is Alert and oriented. In no acute distress. Glascow Coma Scale: Eye opening response: Spontaneous, open with blinking at baseline. 4 points. Verbal response: Oriented. 5 points. Motor Response: Obeys commands for movement. 6 points. Total Score: 10. Subjective: Patient reports: tenderness to touch with minimal soreness in the area her head struck the table. Back of head, left side in the middle Objective: Vitals: 02/03/25 1825 BP: (!) 156/85 Pulse: 104 Resp: 16 SpO2: 100% Assessment findings: Edema. Mild, ~2 cm, soft bump at area where tm struck her head Eyes: Pupils PERRLA No nystagmus Wound/s noted: No. Care provided: -Vitals check. -TM signed AMA, denied ambulance to ER or to return to clinic with medical x3. Discharge: -Patient verbalizes they feel able to perform their job duties at 100%. -Patient left AMA. -Follow up as needed. -Advised to seek emergency medical attention if needed. -Patient education: -Return to clinic or seek medical care with any worsening symptoms or lack of improvement. Triage nurse: Charlene Das RN This was an emergency call with a disruption in patient care and scheduled clinic appointments. History Reviewed: [facility] Review of Systems PHQ-9 Total Score: 0 (01/21/2025 5:56 PM) ICD-10-CM ICD-9-CM 1. Acute head injury, initial encounter S09.90XA 959.01 No orders of the defined types were placed in this encounter. Patient Instructions Seek emergency care for any new/worsening symptoms Can still see [facility] in the future if she wishes to file worker's comp claim Charlene Das RN documented in this encounter Plan of Treatment Not on file documented as of this encounter Visit Diagnoses Diagnosis Acute head injury, initial encounter- Primary documented in this encounter
--- OUTSIDE RECORDS SUMMARY | 2025-03-18 12:19 | XMS_ITS | Encounter Summary ---
Author Organization [facility] Address [address] [place] [address] Phone CareEverywhereSuppor [email or web address] Care Team Providers Care Ash Pit Worker Name Role Phone Unavailable Primary Care Provider Unavailabl e Reason for Visit * Reason Onset Date Comments Care Coordination 02/04/2025 AMA Refusal Ch scott Up Call Encounter Details Date Type Department Care Team (Late st Contact Info) Description 02/04/[address] [place] [address] Calin Greenwood MA [address] [place] [address] Social History Tobacco Use Types [...] on file 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 This steam turbine operator did not answer on this phone call attempt. No further questions or concerns at this time. -Calin Greenwood 02/04/2025 documented in this encounter Plan of Treatment Not on file documented as of this encounter Visit Diagnoses Not on filedocumented in this encounter
--- OUTSIDE RECORDS SUMMARY | 2025-03-18 12:19 | XMS_ITS | Clinical Summary ---
Author Organization [facility] Address [address] [place] [address] Phone CareEverywhereSuppor [email or web address] Care Team Providers Care Mine Safety Engineer Name Role Phone Unavailable Primary Care Provider Unavailabl e Allergies Active Allergy Reactions Criticality Noted Date Comments Honey Bee Venom Swelling High 04/02/2017 Swelling of throat Medications No known medications Active Problems Problem Noted Date Diagnosed Date Allergic rhinitis 02/25/2023 Encounters Date Type Department Care Team Description 02/04/[address] [address] Calin Greenwood MA 02/03/2025 6:30 PM EDT Clinical Support [address] [address] Thiago Chang RN Acute head injury, initial encounter (Primary Dx) 01/21/2025 6:00 PM EDT Clinical Support [address] [address] Mamta Vasquez PA Ophthalmoplegic migraine, [...] on file 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
== END 2025-03-18 23:59 | disposition home or self-care (01) ==
LOC: LAB 12:17
PROVIDERS: PCP Internal Medicine Adolescent Medicine; Visit Provider Obstetrics & Gynecology
DX: O03.9 Complete or unspecified spontaneous abortion without complication (principal)
CPT/HCPCS: 36415; 84702